=== PATIENT | male | born 1990 | race Caucasian/White ===

== ENCOUNTER 2019-07-22 01:25 | Emergency (ER) | payer SELFPAY ==
[~2019-07-22] VITALS: Ht 175.3 cm; Wt 77.2 kg
[2019-07-22 01:26] VITALS: BP 128/86
== END 2019-07-22 04:05 ==
LOC: ER 01:26
DX: Z00.8 Encounter for other general examination (principal); Z72.89 Other problems related to lifestyle; Z88.8 Allergy status to other drugs, medicaments and biological substances
CPT/HCPCS: 99283